=== PATIENT | female | born 1955 | race Two or more races ===

== ENCOUNTER → 2017-01-14 | Outpatient (CLI) | payer OTHER ==
--- NOTE | ~2017-01-14 | MY11 ---
[facility] A Service of [facility] & [facility] RADIOLOGY TEXT RESULTS PATIENT: JED BCEKETT LOCATION: [facility] : 53 UNIT #: [id number] AGE: [address]: Cameron Davidson MD SEX: F ORDER DR: [id number] [facility] [address] [place], [place] [address] [id number] O MR#: [id number] Acc #: [id number] NAME: JED BECKETT : 1955 SEX: F STUDY DATE/TIME: 01/14/2017 14:46 UNIT: [facility] ROOM: STUDY DESCRIPTION: Mammogram Screening Dig [place] Attending Physician: Cameron Davidson M.D. Ordering Physician: Cameron Davidson M.D. Primary Care Physician: Cameron Davidson M.D. MEDICAL IMAGING REPORT This report is preliminary unless electronic signature is present EXAM Bilateral digital screening mammogram with CAD 01/14/2017 INDICATIONS Routine screening. PROCEDURE Bilateral CC and MLO views obtained on a digital mammography unit. An FDA-approved CAD device was utilized. COMPARISON 10/25/2015 FINDINGS Scattered fibroglandular density. No dominant mass or suspicious calcification. There is a biopsy marker clip in the right breast at 12 o'clock position. IMPRESSION Benign screening mammogram, screen interval 1 year suggested. BIRADS II Patients over the age of 40 are entered into a reminder system with target due date for the next mammogram. A result letter will also be sent to the patient. BIRADS: 2 - Benign finding Dictated by... Andre Roach M.D. THIS IS AN ELECTRONICALLY VERIFIED REPORT Andre Roach M.D. at 01/21/2017 7:43 AM LOWELL/sherry [facility] A Service of [facility] & [facility] RADIOLOGY TEXT RESULTS PATIENT: JED BECKETT LOCATION: [facility] : 53 UNIT #: [id number] AGE: [address]: Cameron Davidson MD SEX: F ORDER DR: TD: 01/18/2017 15:57 JOB #: [id number] MEDICAL IMAGING REPORT Page 1 of 1 COPY
== END | disposition home or self-care (01) ==
LOC: CWCC 14:26
DX: Z12.31 Encounter for screening mammogram for malignant neoplasm of breast (principal); Z98.890 Other specified postprocedural states
CPT/HCPCS: G0202